=== PATIENT | female | born 1930 | race Caucasian/White ===

== ENCOUNTER 2018-08-15 10:31 | Emergency (ER) | payer MEDICARE, OTHER ==
[2018-08-15 10:48] VITALS: RESP 18
--- NOTE | 2018-08-15 10:48 | ED ---
General Adult HPI - General Stated complaint: Nose Bleed - History of Present Illness Initial comments: Dictation was produced using [employer] dictation software. please excuse any grammatical, word or spelling errors. Chief Complaint: 88 year old female presents with epistaxis. History of Present Illness: Patient is brought in by EMS. She has had epistaxis upon waking this morning. Patient states she woke up approximately 2 and half hours ago. Patient has has history of remote nosebleed patient states she hasn't had a nosebleed since 2-3 years ago. Patient is on Coumadin for H or fibrillation. She has no other complaints at this time. The ROS documented in this emergency department record has been reviewed and confirmed by me. Those systems with pertinent positive or negative responses have been documented in the HPI. All other systems are other negative and/or noncontributory. - Related Data Home Medications Medication Instructions Recorded Confirmed Ascorbic Acid [Vitamin C] 500 mg PO DAILY@1700 08/15/18 08/15/18 Aspirin [Adult Low Dose Aspirin EC] 81 mg PO DAILY@1700 08/15/18 08/15/18 Bisacodyl 10 mg RECTAL DAILY PRN 08/15/18 08/15/18 Calcium Carbonate/Vitamin D3 1 tab PO DAILY@1700 08/15/18 08/15/18 [Calcium 500-Vit D3 200 Tablet] Gabapentin [Neurontin] 100 mg PO BID@0800,1700 08/15/18 08/15/18 Hydrochlorothiazide 12.5 mg PO DAILY@0800 08/15/18 08/15/18 Lactose-Reduced Food [Ensure Plus] 1 can PO BID 08/15/18 08/15/18 Levothyroxine Sodium [Synthroid] 25 mcg PO DAILY@0600 08/15/18 08/15/18 Losartan Potassium [Cozaar] 25 mg PO DAILY@0800 08/15/18 08/15/18 Magnesium Hydroxide [Milk of 2,400 mg PO DAILY PRN 08/15/18 08/15/18 Magnesia] Multivitamins, Thera [Multivitamin 1 tab PO DAILY@1700 08/15/18 08/15/18 (formulary)] Na Phos,M-B/Na Phos,Di-Ba [Fleet 133 ml RECTAL DAILY PRN 08/15/18 08/15/18 Adult] Potassium Chloride ER [K-Dur 20] 20 meq PO DAILY@0800 08/15/18 08/15/18 Sertraline HCl [Zoloft] 50 mg PO DAILY@0800 08/15/18 08/15/18 Warfarin [Coumadin] 2.5 mg PO SUMOTUTHFR 08/15/18 08/15/18 Warfarin [Coumadin] 5 mg PO WESA 08/15/18 08/15/18 Previous Rx's Medication Instructions Recorded Cephalexin [Keflex] 500 mg PO Q6HR 5 Days #20 cap 08/15/18 Allergies Allergy/AdvReac Type Severity Reaction Status Date / Time No Known Allergies Allergy Verified 08/15/18 10:45 Review of Systems ROS Statement: Those systems with pertinent positive or pertinent negative responses have been documented in the HPI. ROS Other: All systems not noted in ROS Statement are negative. General Exam - General Exam Comments Initial Comments: PHYSICAL EXAM: General Impression: Alert and oriented x3, not in acute distress HEENT: Normocephalic atraumatic, extra-ocular movements intact, pupils equal and reactive to light bilaterally, mucous membranes moist, mild oozing from the left nasal septum. Cardiovascular: Heart regular rate and rhythm, S1&S2 audible, no murmurs, rubs or gallops Chest: Lungs clear to auscultation bilaterally, no rhonchi, no wheeze, no rales Abdomen: Bowel sounds present, abdomen soft, non-tender, non-distended, no organomegaly Musculoskeletal: Pulses present and equal in all extremities, no peripheral edema Motor: Power 5/5 bilaterally, no focal deficits noted Neurological: CN II-XII grossly intact, no focal motor or sensory deficits noted Skin: Intact with no visualized rashes Psych: Normal affect and mood Course Vital Signs 08/15/18 10:36 Temperature 98.5 F Pulse Rate 100 Respiratory 18 Rate Blood Pressure 120/71 O2 Sat by Pulse 100 Oximetry Medical Decision Making - Medical Decision Making ED course: 88-year-old female presents with epistaxis 2 hours. Patient is on Coumadin for atrial fibrillation. Vital signs upon arrival are within acceptable limits.Laboratory evaluation obtained. Hemoglobin stable. INR of 2.5. Patient observed in the emergency Department with no further bleeding after placement of left naris merocel. Patient clear for discharge. She is given outpatient referral to ENT. She is told to follow-up in 2-3 days. Prescription provided for Keflex for prophylaxis antibiotics. Patient told to remain in bed rest until seen by ENT doctor. Patient told to resume her usual medications. EKG Interpretation: A 12 lead EKG was obtained. It was interpreted by myself and attending physician. There is a P wave before every QRS complex. Rate is 110. Rhythm is atrial fibrillation, QRS 72, QTc 433. QT is not prolonged. No ST segment depression or elevation. This EKG was compared to a previous EKG that was obtained on [default value] and showed no significant change. Overall, this EKG is unremarkable - Lab Data Result diagrams: 08/15/18 11:10 Lab Results 08/15/18 08/15/18 08/15/18 Range/Units 11:10 11:10 11:10 WBC 7.1 (3.8-10.6) k/uL RBC 4.25 (3.80-5.40) m/uL Hgb 12.5 (11.4-16.0) gm/dL Hct 39.7 (34.0-46.0) % MCV 93.4 (80.0-100.0) fL MCH 29.5 (25.0-35.0) pg MCHC 31.6 (31.0-37.0) g/dL RDW 13.9 (11.5-15.5) % Plt Count 453 H (150-450) k/uL Neutrophils % 72 % Lymphocytes % 19 % Monocytes % 6 % Eosinophils % 2 % Basophils % 0 % Neutrophils # 5.1 (1.3-7.7) k/uL Lymphocytes # 1.3 (1.0-4.8) k/uL Monocytes # 0.4 (0-1.0) k/uL Eosinophils # 0.1 (0-0.7) k/uL Basophils # 0.0 (0-0.2) k/uL PT 24.1 H (9.0-12.0) sec INR 2.5 H (<1.2) Blood Type O Positive Blood Type Recheck CABO Indicated Antibody Screen NEGATIVE Spec Expiration Date 08/18/2018 - 2309 Disposition Clinical Impression: Epistaxis Disposition: HOME SELF-CARE Instructions: Nosebleed (ED) Prescriptions: Cephalexin [Keflex] 500 mg PO Q6HR 5 Days #20 cap Is patient prescribed a controlled substance at d/c from ED?: No Referrals: Bereket Talley MD [Primary Care Provider] - 1-2 days Hank Montanez MD [STAFF PHYSICIAN] - 1-2 days Time of Disposition: 12:02
[2018-08-15] MEDS ORDERED: SILVER NITRATE APPLICATOR 1 EACH STICK..EA. TOPICAL STA (10:49)
[2018-08-15 11:25] LABS: Basophils % (A) 0 %; Eosinophils # (A) 0.1 k/uL (0-0.7); Eosinophils % (A) 2 %; HCT 39.7 % (34.0-46.0); HGB 12.5 gm/dL (11.4-16.0); Lymphocytes # (A) 1.3 k/uL (1.0-4.8); Lymphocytes % (A) 19 %; MCH 29.5 pg (25.0-35.0); MCHC 31.6 g/dL (31.0-37.0); MCV 93.4 fL (80.0-100.0); Mean Platelet Volume 6.8; Monocytes # (A) 0.4 k/uL (0-1.0); Monocytes % (A) 6 %; Neutrophils # (A) 5.1 k/uL (1.3-7.7); Neutrophils % (A) 72 %; Platelet Count 453 k/uL (150-450); RBC 4.25 m/uL (3.80-5.40); RDW 13.9 % (11.5-15.5); WBC 7.1 k/uL (3.8-10.6)
[2018-08-15 11:29] LABS: INR 2.5 (<1.2); Prothrombin Time 24.1 sec (9.0-12.0)
[2018-08-15 12:32] VITALS: BP 122/70; PULSE 90; TEMP 98.4
== END 2018-08-15 12:32 | disposition home or self-care (01) ==
LOC: EC 10:31
DX: R04.0 Epistaxis (principal); I48.91 Unspecified atrial fibrillation; Z79.82 Long term (current) use of aspirin; Z79.01 Long term (current) use of anticoagulants; Z79.899 Other long term (current) drug therapy
CPT/HCPCS: 30901; 36415; 85025; 85610; 86850; 86900; 86901; 93005; 99284

== ENCOUNTER 2019-05-08 07:52 | Emergency (ER) | payer MEDICARE, OTHER ==
[2019-05-08 08:05] VITALS: TEMP 98.5
[2019-05-08] MEDS ORDERED: OXYMETAZOLINE 0.05% NASL SPRAY 1 SPRAY BOTTLE NASAL STA (08:28)
--- NOTE | 2019-05-08 08:30 | ED ---
ENT HPI - General Chief complaint: ENT Stated complaint: nosebleed Time Seen by Provider: 05/08/19 08:05 Source: patient, RN notes reviewed Mode of arrival: wheelchair Limitations: no limitations - History of Present Illness Initial comments: This an 89-year-old female presents emergency Department chief complaint of epistaxis. Patient states it started an hour Sukumar at home. Patient states that is primarily bleeding on the left nostril. She has had this in the past in which she had her nose packed. Patient states that she does take Coumadin for A. fib. She denies any headache, dizziness, abdominal pain, rectal bleeding, image area. Patient denies any excessive bruising at this time. Patient states that her INR level has been up and down and they have been adjusting her medications. Patient states that she does have a nose clamp on which seems to be helping. - Related Data Home Medications Medication Instructions Recorded Confirmed Ascorbic Acid [Vitamin C] 500 mg PO DAILY@1700 08/15/18 05/08/19 Aspirin [Adult Low Dose Aspirin EC] 81 mg PO DAILY@1700 08/15/18 05/08/19 Calcium Carbonate/Vitamin D3 1 tab PO DAILY@1700 08/15/18 05/08/19 [Calcium 500-Vit D3 200 Tablet] Gabapentin [Neurontin] 100 mg PO BID@0800,1700 08/15/18 05/08/19 Hydrochlorothiazide 12.5 mg PO DAILY@0800 08/15/18 05/08/19 Levothyroxine Sodium [Synthroid] 25 mcg PO DAILY@0600 08/15/18 05/08/19 Losartan Potassium [Cozaar] 25 mg PO DAILY@0800 08/15/18 05/08/19 Multivitamins, Thera [Multivitamin 1 tab PO DAILY@1700 08/15/18 05/08/19 (formulary)] Potassium Chloride ER [K-Dur 20] 20 meq PO DAILY@0800 08/15/18 05/08/19 Warfarin [Coumadin] 2.5 mg PO SUMOTUTHFR 08/15/18 05/08/19 Warfarin [Coumadin] 5 mg PO WESA 08/15/18 05/08/19 traMADol HCL [Ultram] 50 mg PO BID PRN 05/08/19 05/08/19 Allergies Allergy/AdvReac Type Severity Reaction Status Date / Time No Known Allergies Allergy Verified 05/08/19 08:36 Review of Systems ROS Statement: Those systems with pertinent positive or pertinent negative responses have been documented in the HPI. ROS Other: All systems not noted in ROS Statement are negative. Past Medical History Past Medical History: Atrial Fibrillation, Hypertension History of Any Multi-Drug Resistant Organisms: None Reported Past Surgical History: Heart Catheterization, Heart Catheterization With Stent Additional Past Surgical History / Comment(s): pacemaker Past Psychological History: No Psychological Hx Reported Smoking Status: Never smoker Past Alcohol Use History: None Reported Past Drug Use History: None Reported General Exam Limitations: no limitations General appearance: alert, in no apparent distress Head exam: Present: atraumatic, normocephalic, normal inspection Eye exam: Present: normal appearance, PERRL, EOMI. Absent: scleral icterus, conjunctival injection, periorbital swelling ENT exam: Present: normal oropharynx, mucous membranes moist, TM's normal bilaterally, normal external ear exam, other (No active bleeding noted from the left nostril there is old blood noted). Absent: normal exam Neck exam: Present: normal inspection, full ROM. Absent: tenderness, meningismus, lymphadenopathy Respiratory exam: Present: normal lung sounds bilaterally. Absent: respiratory distress, wheezes, rales, rhonchi, stridor Cardiovascular Exam: Present: regular rate, normal rhythm, normal heart sounds. Absent: systolic murmur, diastolic murmur, rubs, gallop, clicks GI/Abdominal exam: Present: soft, normal bowel sounds. Absent: distended, tenderness, guarding, rebound, rigid Neurological exam: Present: alert, oriented X3, CN II-XII intact Skin exam: Present: warm, dry, intact, normal color. Absent: rash Course Vital Signs 05/08/19 08:02 Temperature 98.5 F Pulse Rate 84 Respiratory 18 Rate Blood Pressure 152/75 O2 Sat by Pulse 98 Oximetry Medical Decision Making - Medical Decision Making 89-year-old female presented from chief complaint of epistaxis. Patient's had no rebleeding in emergency department. Patient was given Afrin. Patient does take Coumadin and INR is 2.7 at this time. She has no signs of bleeding. Patient will be discharged she has seen ENT in the past. - Lab Data Lab Results 05/08/19 Range/Units 08:45 PT 26.5 H (9.0-12.0) sec INR 2.7 H (<1.2) APTT 40.1 H (22.0-30.0) sec Disposition Clinical Impression: Epistaxis Disposition: HOME SELF-CARE Condition: Stable Instructions (If sedation given, give patient instructions): Nosebleed (ED) Additional Instructions: Please return to the Emergency Department if symptoms worsen or any other concerns. Is patient prescribed a controlled substance at d/c from ED?: No Referrals: Nathan Spence MD [Primary Care Provider] - 1-2 days Time of Disposition: 09:13
[2019-05-08 09:07] LABS: INR 2.7 (<1.2); Partial Thromboplastin Time 40.1 sec (22.0-30.0); Prothrombin Time 26.5 sec (9.0-12.0)
[2019-05-08 09:34] VITALS: BP 150/76; PULSE 80; RESP 16
== END 2019-05-08 09:28 | disposition home or self-care (01) ==
LOC: EC 07:52
DX: R04.0 Epistaxis (principal); I48.91 Unspecified atrial fibrillation; I10 Essential (primary) hypertension; Z79.01 Long term (current) use of anticoagulants; Z79.82 Long term (current) use of aspirin; Z79.890 Hormone replacement therapy; Z79.899 Other long term (current) drug therapy; Z95.0 Presence of cardiac pacemaker; Z95.5 Presence of coronary angioplasty implant and graft
CPT/HCPCS: 36415; 85610; 85730; 99283

== ENCOUNTER 2020-02-29 14:22 | Observation (INO) | payer MEDICARE ==
--- NOTE | 2020-02-29 15:30 | XR ---
EXAMINATION TYPE: XR wrist complete LT DATE OF EXAM: 02/29/2020 CLINICAL HISTORY: pain TECHNIQUE: Frontal, lateral and oblique images of the left wrist are obtained. COMPARISON: None. FINDINGS: Impacted distal radial fracture with intra-articular extension. Suspect small ulnar styloid component. Moderate narrowing radiocarpal joint space. IMPRESSION: Distal radial and ulnar fracture as above. ICD 10 closed FRACTURE, INITIAL EVALUATION
--- NOTE | 2020-02-29 15:37 | XR ---
EXAMINATION TYPE: XR Hip LT and AP Pelvis DATE OF EXAM: 02/29/2020 CLINICAL HISTORY: pain TECHNIQUE: AP and frogleg views of the left hip are obtained. Single view of the pelvis is also subm itted. COMPARISON: None. FINDINGS: Cortical irregularity involving the left os pubis and superior pubic ramus felt to reflect fracture. No additional fractures noted. Severe degenerative narrowing left hip joint space with unde rlying sclerosis and subchondral cyst formation. IMPRESSION: 1. Suspect fracture left os pubis and left superior pubic ramus. 2. Severe degenerative arthropathy.
[2020-02-29] MEDS ORDERED: ONDANSETRON 4 MG/2 ML VIAL IVP STA (16:33)
[2020-02-29] MEDS ORDERED: NALOXONE 0.4 MG/ML 1 ML VIAL IV PRN (16:44)
--- NOTE | 2020-02-29 16:44 | ED ---
Fall HPI - General Chief Complaint: Fall Stated Complaint: Fall Time Seen by Provider: 02/29/20 14:39 Source: patient Mode of arrival: EMS - History of Present Illness Initial Comments: 10-year-old female who is on Coumadin presented to the ER for follow-up. She states that her walker was stuck up on an id. she pulled it out falling onto her left side. Patient states she did not hit her head or neck doesn't injury to her chest or abdomen. Patient states her left groin hurts and it hurts more when she moves her left hip or weakness. Patient states she was able to stand up to get onto the stretcher. Patient denies any numbness tingling or loss of sensation she denies any low back pain neck pain. Patient states that her left wrist also has been bothering her she denies any elbow or shoulder pain. Patient denies additional complaints that she is able to use her wrist denies any numbness tingling loss of sensation coolness or pallor of the extremity. Upon arrival patient is very pleasant she does not appear distressed is resting comfortable on stretcher - Related Data Home Medications Medication Instructions Recorded Confirmed Gabapentin [Neurontin] 100 mg PO TID 08/15/18 02/29/20 Levothyroxine Sodium [Synthroid] 25 mcg PO DAILY@0700 08/15/18 02/29/20 Losartan Potassium [Cozaar] 25 mg PO DAILY 08/15/18 02/29/20 Potassium Chloride ER [K-Dur 20] 20 meq PO DAILY 08/15/18 02/29/20 Warfarin [Coumadin] 2.5 mg PO MOTUTHFRSA 08/15/18 02/29/20 traMADol HCL [Ultram] 50 mg PO 5XD PRN 05/08/19 02/29/20 Acetaminophen Tab [Tylenol Tab] 500 mg PO Q4H PRN 02/29/20 02/29/20 Hydrochlorothiazide [Hydrodiuril] 12.5 mg PO DAILY 02/29/20 02/29/20 Warfarin [Coumadin] 5 mg PO SUWE 02/29/20 02/29/20 metroNIDAZOLE [metroNIDAZOLE 0.75% 1 applic TOPICAL BID PRN 02/29/20 02/29/20 Gel] Allergies Allergy/AdvReac Type Severity Reaction Status Date / Time No Known Allergies Allergy Verified 07/10/20 16:37 Review of Systems ROS Statement: Those systems with pertinent positive or pertinent negative responses have been documented in the HPI. ROS Other: All systems not noted in ROS Statement are negative. Past Medical History Past Medical History: Atrial Fibrillation, Hypertension History of Any Multi-Drug Resistant Organisms: None Reported Past Surgical History: Heart Catheterization, Heart Catheterization With Stent Additional Past Surgical History / Comment(s): pacemaker Past Psychological History: No Psychological Hx Reported Smoking Status: Never smoker Past Alcohol Use History: None Reported Past Drug Use History: None Reported General Exam - General Exam Comments Initial Comments: General: The patient is awake and alert, in no distress Eye: +3 mm pupils are equal, round and reactive to light, extra-ocular movements are intact. No nystagmus. There is normal conjunctiva bilaterally. No signs of icterus. Ears, nose, mouth and throat: There are moist mucous membranes and no oral lesions. No scalp hematomas raccoon or Payne sign Neck: The neck is supple, there is no tenderness or JVD. No midline tenderness to palpation fo the cervical spine. Cardiovascular: There is a regular rate and rhythm. No murmur, rub or gallop is appreciated. Respiratory: Lungs are clear to auscultation, respirations are non-labored, breath sounds are equal. No wheezes, stridor, rales, or rhonchi. Gastrointestinal: Soft, non-distended, non-tender abdomen without masses or organomegaly noted. There is no rebound or guarding present. Musculoskeletal: Upon inspection of the left wrist bilaterally there is no shortening or rotation. Able to weight bear but cannot take more than 1 step secondary to pain. Normal ROM of the knees and ankles b/l. Patient is able to range at both wrists, elbows and shoulder however significnat pain wtih ROm at the left wrist. Pain over the distal forearm. Patient has full strength of legs distal to hip, refuses to fully strength test the hips b/l ensation intact of the UE and LE b/l. Compartments of the upper and lower extremities soft compressible-no pain out of proportion. Radial and DP pulses equal bilaterally 2+. Neurological: A&O x 3. CN II-XII intact grossly, There are no obvious motor or sensory deficits. Coordination appears grossly intact. Speech is normal. Skin: Skin is warm and dry and no rashes or lesions are noted. Psychiatric: Cooperative, appropriate mood & affect, normal judgment. Limitations: no limitations Course Vital Signs 02/29/20 14:25 Temperature 99.3 F Pulse Rate 95 Respiratory 16 Rate Blood Pressure 120/77 O2 Sat by Pulse 93 L Oximetry Medical Decision Making - Medical Decision Making 89yo female presenting today for cc of fall. mechanical in nature. XR + for pelvic rami fractures x2 .Patient wrist has ulnar and radius fracture (left), distal, displaced and comminuted. Patient neurovascularly intact of the upper and lower extremities equal bilaterally. Will be admitted to orthopedics with medicine on consult.. Patient agreeable to care plan and admission. Dr. Greenberg agreeable to care plan and admission. - Lab Data Result diagrams: 02/29/20 16:48 02/29/20 16:48 Lab Results 02/29/20 02/29/20 02/29/20 Range/Units 16:48 16:48 16:48 WBC 12.2 H (3.8-10.6) k/uL RBC 4.34 (3.80-5.40) m/uL Hgb 13.5 (11.4-16.0) gm/dL Hct 43.4 (34.0-46.0) % MCV 99.9 (80.0-100.0) fL MCH 31.0 (25.0-35.0) pg MCHC 31.0 (31.0-37.0) g/dL RDW 13.0 (11.5-15.5) % Plt Count 335 (150-450) k/uL Neutrophils % 81 % Lymphocytes % 12 % Monocytes % 4 % Eosinophils % 2 % Basophils % 0 % Neutrophils # 9.9 H (1.3-7.7) k/uL Lymphocytes # 1.4 (1.0-4.8) k/uL Monocytes # 0.5 (0-1.0) k/uL Eosinophils # 0.2 (0-0.7) k/uL Basophils # 0.0 (0-0.2) k/uL PT 24.9 H (9.0-12.0) sec INR 2.6 H (<1.2) Sodium 137 (137-145) mmol/L Potassium 4.3 (3.5-5.1) mmol/L Chloride 106 (98-107) mmol/L Carbon Dioxide 21 L (22-30) mmol/L Anion Gap 10 mmol/L BUN 26 H (7-17) mg/dL Creatinine 0.77 (0.52-1.04) mg/dL Est GFR (CKD-EPI)AfAm 80 (>60 ml/min/1.73 sqM) Est GFR (CKD-EPI)NonAf 69 (>60 ml/min/1.73 sqM) Glucose 102 H (74-99) mg/dL Calcium 10.5 H (8.4-10.2) mg/dL Total Bilirubin 0.5 (0.2-1.3) mg/dL AST 36 (14-36) U/L ALT 17 (4-34) U/L Alkaline Phosphatase 72 (38-126) U/L Total Protein 8.1 (6.3-8.2) g/dL Albumin 4.4 (3.5-5.0) g/dL Disposition Clinical Impression: Fall, Left radial fracture, Left ulnar fracture, Pubic bone fracture Disposition: ADMITTED IP TO THIS [facility] Condition: Stable Is patient prescribed a controlled substance at d/c from ED?: No Time of Disposition: 16:44 Decision to Admit Reason: Admit from EC Decision Date: 02/29/20 Decision Time: 16:44
[2020-02-29 16:59] LABS: Basophils % (A) 0 %; Eosinophils # (A) 0.2 k/uL (0-0.7); Eosinophils % (A) 2 %; HCT 43.4 % (34.0-46.0); HGB 13.5 gm/dL (11.4-16.0); Lymphocytes # (A) 1.4 k/uL (1.0-4.8); Lymphocytes % (A) 12 %; MCV 99.9 fL (80.0-100.0); Mean Platelet Volume 7.4; Monocytes # (A) 0.5 k/uL (0-1.0); Monocytes % (A) 4 %; Neutrophils # (A) 9.9 k/uL (1.3-7.7); Neutrophils % (A) 81 %; Platelet Count 335 k/uL (150-450); RBC 4.34 m/uL (3.80-5.40); WBC 12.2 k/uL (3.8-10.6)
[2020-02-29 17:08] LABS: INR 2.6 (<1.2); Prothrombin Time 24.9 sec (9.0-12.0)
[2020-02-29] MEDS: MORPHINE SULFATE 2 MG/ML SYRINGE IVP PRN ×2 (17:09→22:36)
[2020-02-29 17:18] LABS: Albumin 4.4 g/dL (3.5-5.0); Calcium 10.5 mg/dL (8.4-10.2); Potassium 4.3 mmol/L (3.5-5.1); Total Bilirubin 0.5 mg/dL (0.2-1.3); Total Protein 8.1 g/dL (6.3-8.2)
--- NOTE | 2020-02-29 18:18 | XR ---
EXAMINATION TYPE: XR chest 2V DATE OF EXAM: 02/29/2020 COMPARISON: NONE HISTORY: Trauma and pain TECHNIQUE: Frontal and lateral views of the chest are obtained. FINDINGS: There is no focal air space opacity, pleural effusion, or pneumothorax seen. The cardiac silhouette size is within normal limits. The osseous structures are intact. There is a generator in the left pectoral region. Leads are present in the right atrium and ventricle. Arthropathy noted wit hin the shoulders. Aorta is dense. IMPRESSION: No acute cardiopulmonary process.
[2020-02-29] MEDS ORDERED: HYDROcodone/APAP 5-325MG 1 EACH TAB PO PRN (20:19)
[2020-02-29] MEDS: GABAPENTIN 100 MG CAP PO SCH (22:36)
[2020-02-29] MEDS ORDERED: BACLOFEN 10 MG TAB PO PRN (23:31)
--- NOTE | 2020-03-01 00:47 | P.CONS ---
History of Present Illness - Reason for Consult Consult date: 02/29/20 medical management Requesting physician: Mekhi Fish - Chief Complaint fall - History of Present Illness 89-year-old female with A. fib on Coumadin and hypertension otherwise healthy Patient comes in after sustaining a fall while walking outside using the walker she claims that the walker got stuck she was trying to talk it out and lost her balance fell on her left side with outstretched hand to support her fall she immediately fell some pain in her groin she was transferred to a stretcher and brought to the hospital for evaluation she was very pleasant upon initial evaluation in the ER did not seem to be in any distress. During my evaluation she was very, cooperative and pleasant denies any active pain at this time she realizes that she was diagnosed with fracture in her pelvis and fracture in her left distal radius and ulna she denies any severe pain in her left wrist she reports that she can move her hand however right now she is in the asked lack to support her right upper extremity due to the fracture she is able to move her fingers denies any numbness or tingling tip of the fingers denies any chest pain trouble breathing abdominal pain denies any trauma to the head or neck. Patient denies any recent falls otherwise she reports that most recent fall was another accident 4 years ago. She reports that she had complete physical recently and she was found to have good strength could balance. Patient on Coumadin for A. fib. Orthopedic recommended conservative management with no plans for surgery at this time Review of Systems Pertinent positives as noted in HPI. All other systems were reviewed and are ne gative Past Medical History Past Medical History: Atrial Fibrillation, Hypertension History of Any Multi-Drug Resistant Organisms: None Reported Past Surgical History: Heart Catheterization, Heart Catheterization With Stent Additional Past Surgical History / Comment(s): pacemaker Past Anesthesia/Blood Transfusion Reactions: No Reported Reaction Date of Last Stent Placement:: 0000 Past Psychological History: No Psychological Hx Reported Smoking Status: Never smoker Past Alcohol Use History: None Reported Past Drug Use History: None Reported - Past Family History Family Family Medical History: No Reported History Medications and Allergies Home Medications Medication Instructions Recorded Confirmed Type Gabapentin [Neurontin] 100 mg PO TID 08/15/18 02/29/20 History Levothyroxine Sodium [Synthroid] 25 mcg PO DAILY@0700 08/15/18 02/29/20 History Losartan Potassium [Cozaar] 25 mg PO DAILY 08/15/18 02/29/20 History Potassium Chloride ER [K-Dur 20] 20 meq PO DAILY 08/15/18 02/29/20 History Warfarin [Coumadin] 2.5 mg PO MOTUTHFRSA 08/15/18 02/29/20 History traMADol HCL [Ultram] 50 mg PO 5XD PRN 05/08/19 02/29/20 History Acetaminophen Tab [Tylenol Tab] 500 mg PO Q4H PRN 02/29/20 02/29/20 History Hydrochlorothiazide [Hydrodiuril] 12.5 mg PO DAILY 02/29/20 02/29/20 History Warfarin [Coumadin] 5 mg PO SUWE 02/29/20 02/29/20 History metroNIDAZOLE [metroNIDAZOLE 0.75% 1 applic TOPICAL BID PRN 02/29/20 02/29/20 History Gel] Allergies Allergy/AdvReac Type Severity Reaction Status Date / Time No Known Allergies Allergy Verified 02/29/20 16:37 Physical Exam Vitals: Vital Signs Temp Pulse Resp BP Pulse Ox 02/29/20 18:33 99.3 F 89 16 117/74 95 02/29/20 17:50 99.3 F 89 16 117/74 95 02/29/20 14:25 99.3 F 95 16 120/77 93 L Intake and Output 02/29/20 02/29/20 02/29/20 06:59 14:59 22:59 Intake Total 200 Balance 200 Intake: Amount of Fluid Infused ( 200 ml) Other: Weight 68.946 kg 68.946 kg Constitutional: No acute distress, conversant, pleasant Eyes: Anicteric sclerae, moist conjunctiva, Pupils equal round reactive to light ENMT: NC/AT Oropharynx clear, no erythema, or exudates Neck: Supple, FROM, no masses, or JVD No carotid bruits No thyromegaly Lungs: Clear to auscultation Clear to percussion Normal respiratory effort, no accessory muscle use Cardiovascular: Heart regular in rate and rhythm, No murmurs, gallops, or rubs No peripheral edema Abdominal: Soft Nontender, no guarding, rebound or rigidity Abdomen moving with respiration Normoactive bowel sounds No hepatomegaly, No splenomegaly No palpable mass No abdominal wall hernia noted Skin: Normal temperature, tone, texture, turgor No induration No subcutaneous nodules No rash, lesions No ulcers Extremities: Left upper extremity and back SLAP support her acute left distal radius and ulna fracture, capillary refill is immediate to the left fingers no pain upon movement of the fingers No digital cyanosis No clubbing Pedal pulses intact and symmetrical Radial pulses intact and symmetrical No calf tenderness Psychiatric: Alert and oriented to person, place and time Appropriate affect fair judgement Neuro Muscles Strength 4/5 in all 4 extremities however limited exam over the distal muscle group in the left upper extremity due to\recent fracture Sensation to light touch grossly present throughout Cranial nerves II-XII grossly intact except for eighth cranial nerve patient is very hard of hearing No focal sensory deficits Lymphatics: no palpable cervical or supraclavicular , or inguinal lymph no paul Results CBC & Chem 7: 02/29/20 16:48 02/29/20 16:48 Labs: Abnormal Lab Results - Last 24 Hours (Table) 02/29/20 02/29/20 02/29/20 Range/Units 16:48 16:48 16:48 WBC 12.2 H (3.8-10.6) k/uL Neutrophils # 9.9 H (1.3-7.7) k/uL PT 24.9 H (9.0-12.0) sec INR 2.6 H (<1.2) Carbon Dioxide 21 L (22-30) mmol/L BUN 26 H (7-17) mg/dL Glucose 102 H (74-99) mg/dL Calcium 10.5 H (8.4-10.2) mg/dL Assessment and Plan Assessment: Acute fracture of the left distal ulna radius Pelvic rami fracture Accidental fall Management per orthopedics plans for conservative management no plans for immediate surgery at this time Pain control Imaging reviewed Chronic conditions A. fib on Coumadin Hypertension on losartan and hydrochlorothiazide Consideration should be made to discuss with the patient risks and benefits of C oumadin for A. fib especially with her recent fall Also consideration should be made to discontinue hydrochlorothiazide especially during summer time due to risk of dehydration resulting in hypotension and falls Patient is full code Thank you for allowing us to participate in the care of this patient. Do not hesitate to contact us with questions. Someone can be reached from the [facility] hospitalist group at all hours of the day at [phone].
[2020-03-01 08:13] LABS: HCT 35.8 % (34.0-46.0); HGB 11.2 gm/dL (11.4-16.0); MCH 31.3 pg (25.0-35.0); MCHC 31.2 g/dL (31.0-37.0); MCV 100.2 fL (80.0-100.0); Mean Platelet Volume 7.6; Platelet Count 240 k/uL (150-450); RBC 3.57 m/uL (3.80-5.40); RDW 13.2 % (11.5-15.5); WBC 7.3 k/uL (3.8-10.6)
[2020-03-01] MEDS: LOSARTAN 25 MG TAB PO SCH (08:24)
[2020-03-01] MEDS: LEVOTHYROXINE 25 MCG TAB PO SCH (08:24)
[2020-03-01] MEDS: GABAPENTIN 100 MG CAP PO SCH ×3 (08:24→21:58)
[2020-03-01 08:33] LABS: Calcium 9.4 mg/dL (8.4-10.2); Potassium 4.1 mmol/L (3.5-5.1)
[2020-03-01 08:57] LABS: INR 2.1 (<1.2); Prothrombin Time 20.3 sec (9.0-12.0)
--- NOTE | 2020-03-01 10:24 | P.PN ---
Subjective Progress Note Date: 03/01/20 Patient seen and evaluated at the bedside. She reported that her hip pain is improved though she has somewhat worsened pain over left arm. Reported 6 out of 10 pain of the arm with no pain at rest of the hip. Reports that she is able to move her left hand and left foot. Denied numbness or tingling anywhere. She denied any additional complaints. Denied fever, chills, chest pain, shortness of breath. Denied cough, nausea, vomiting, or abdominal pain. Objective - Vital Signs Vital signs: Vital Signs Temp 98.2 F 03/01/20 07:00 Pulse 89 03/01/20 07:00 Resp 18 03/01/20 07:00 BP 116/76 03/01/20 07:00 Pulse Ox 95 03/01/20 07:00 Intake & Output 02/29/20 03/01/20 03/01/20 18:59 06:59 18:59 Intake Total 200 Output Total 500 Balance 200 -500 Weight 68.946 kg Intake: Amount of Fluid Infused ( 200 ml) Output: Urine 500 Other: # Bowel Movements 0 - Exam General: Non-toxic, in no acute distress, appears stated age, normal weight HEENT: NC/AT, anicteric sclerae, moist conjunctiva, no lid-lag, PERRLA Cardiovascular: S1/S2 wnl, no murmurs, rubs, or gallops Lungs: Clear to auscultation, normal respiratory effort, no accessory muscle use Abdominal: Soft, non-tender, non-distended, no guarding, rebound, or rigidity Skin: Warm, dry Extremities: Left arm brace in place, left hip tenderness with an overlying skin abnormalities noted Psychiatric: Alert and oriented to person, place and time, appropriate affect Neuro: CN II-XII grossly intact, Strength 4/5 in right upper extremity and right lower extremity, strength limited at left lower extremity and left upper extremity due to recent trauma and acute fractures, able to move fingers and toes on left side, Speech intact, Sensation to light touch grossly intact throughout - Labs CBC & Chem 7: 03/01/20 07:38 03/01/20 07:38 Labs: Abnormal Lab Results - Last 24 Hours (Table) 02/29/20 02/29/20 02/29/20 Range/Units 16:48 16:48 16:48 WBC 12.2 H (3.8-10.6) k/uL RBC (3.80-5.40) m/uL Hgb (11.4-16.0) gm/dL MCV (80.0-100.0) fL Neutrophils # 9.9 H (1.3-7.7) k/uL PT 24.9 H (9.0-12.0) sec INR 2.6 H (<1.2) Sodium (137-145) mmol/L Carbon Dioxide 21 L (22-30) mmol/L BUN 26 H (7-17) mg/dL Glucose 102 H (74-99) mg/dL Calcium 10.5 H (8.4-10.2) mg/dL 03/01/20 03/01/20 03/01/20 Range/Units 07:38 07:38 08:31 WBC (3.8-10.6) k/uL RBC 3.57 L (3.80-5.40) m/uL Hgb 11.2 L (11.4-16.0) gm/dL MCV 100.2 H (80.0-100.0) fL Neutrophils # (1.3-7.7) k/uL PT 20.3 H (9.0-12.0) sec INR 2.1 H (<1.2) Sodium 135 L (137-145) mmol/L Carbon Dioxide (22-30) mmol/L BUN 25 H (7-17) mg/dL Glucose 108 H (74-99) mg/dL Calcium (8.4-10.2) mg/dL Assessment and Plan Plan: Acute traumatic fracture of pelvis and left upper extremity with distal ulna and radius -Management including pain control as per the orthopedic surgery service -Conservative measures planned A. fib, on Coumadin -INR continues to be therapeutic -Continue with home dose -The patient reports that she does not routinely fall, and this was a mechanical fall and not due to dizziness -May consider discontinuing Coumadin if fall risk felt to be high Hypertension -Currently on losartan and hydrochlorothiazide -Patient denying episodes of dizziness or near syncope -Continue with above medications for now though may consider discontinuing HCTZ -Most recent guidelines indicate that the lower the BP, the better the outcomes for patient as long as the patient is asymptomatic and able to tolerate the BP Leukocytosis -Resolved
[2020-03-01] MEDS: MORPHINE SULFATE 2 MG/ML SYRINGE IVP PRN (11:13)
--- NOTE | 2020-03-01 11:16 | P.CNOR ---
History of Present Illness - [facility] Consult date: 03/01/20 Consult reason: fracture History of present illness: Patient is an 89-year-old female who was brought to [facility] for evaluation after a fall that occurred at her home. Patient states that she tripped over her walker while in her driveway. She landed on her left side. Upon arrival to the hospital, imaging and lab tests were done. Images demonstrated a left distal radius fracture and a fracture involving the left superior pubic rami and possible os pubis. I was contacted by the emergency room staff, I was able to review the images. Patient was admitted under our care, internal medicine was placed on consult for management. She was examined today at bedside, she is resting comfortably. She does note some discomfort in the left wrist along with the left buttock region. She was able to ambulate little bit yesterday and today, she notes most the pain when she ambulates. There is a basic cock up wrist splint on the left upper extremity at this time with Efrem bandage. Patient has no other orthopedic complaints at this time. She states that she is rather independent, she does drive still. She utilizes a walker with ambulation. She denies any previous surgery involving the left upper extremity and the left lower extremity. Review of Systems Constitutional: Reports as per [facility] Past Medical History Past Medical History: Atrial Fibrillation, Hypertension History of Any Multi-Drug Resistant Organisms: None Reported Past Surgical History: Heart Catheterization, Heart Catheterization With Stent Additional Past Surgical History / Comment(s): pacemaker Past Anesthesia/Blood Transfusion Reactions: No Reported Reaction Date of Last Stent Placement:: 0000 Past Psychological History: No Psychological Hx Reported Smoking Status: Never smoker Past Alcohol Use History: None Reported Past Drug Use History: None Reported - Past Family History Family Family Medical History: No Reported History Medications and Allergies Home Medications Medication Instructions Recorded Confirmed Type Gabapentin [Neurontin] 100 mg PO TID 08/15/18 02/29/20 History Levothyroxine Sodium [Synthroid] 25 mcg PO DAILY@0700 08/15/18 02/29/20 History Losartan Potassium [Cozaar] 25 mg PO DAILY 08/15/18 02/29/20 History Potassium Chloride ER [K-Dur 20] 20 meq PO DAILY 08/15/18 02/29/20 History Warfarin [Coumadin] 2.5 mg PO MOTUTHFRSA 08/15/18 02/29/20 History traMADol HCL [Ultram] 50 mg PO 5XD PRN 05/08/19 02/29/20 History Acetaminophen Tab [Tylenol Tab] 500 mg PO Q4H PRN 02/29/20 02/29/20 History Hydrochlorothiazide [Hydrodiuril] 12.5 mg PO DAILY 02/29/20 02/29/20 History Warfarin [Coumadin] 5 mg PO SUWE 02/29/20 02/29/20 History metroNIDAZOLE [metroNIDAZOLE 0.75% 1 applic TOPICAL BID PRN 02/29/20 02/29/20 History Gel] Allergies Allergy/AdvReac Type Severity Reaction Status Date / Time No Known Allergies Allergy Verified 02/29/20 16:37 Physical Examination Left upper extremity: Cockup wrist splint and Efrem bandage are in good position and condition. Sensation to light touch both proximal and distal to the splinter intact. No significant swelling or ecchymosis present in the fingers. Skin is warm to touch. She has no tenderness with palpation involving the elbow or shoulder. Range of motion of the elbow and shoulder are intact Left lower extremity: Log roll maneuver of the hip reproduces no pain, she is nontender with palpation throughout the knee, lower leg and foot and ankle. Straight leg raise does reproduce some pain in the buttock region. She is nontender with palpation of the greater trochanter. Calf is soft, no tenderness with palpation, distal neurovascular exam is intact General orthopedic exam: Range of motion of the right upper extremity is intact at shoulder, elbow, wrist and hand. No tenderness with palpation throughout the right upper extremity. L ogroll maneuver of the right lower extremity reproduces no pain, she is nontender with palpation throughout that extremity, the distal neurovascular exam is intact. Results - Labs Labs: Abnormal Lab Results - Last 24 Hours (Table) 02/29/20 02/29/20 02/29/20 Range/Units 16:48 16:48 16:48 WBC 12.2 H (3.8-10.6) k/uL RBC (3.80-5.40) m/uL Hgb (11.4-16.0) gm/dL MCV (80.0-100.0) fL Neutrophils # 9.9 H (1.3-7.7) k/uL PT 24.9 H (9.0-12.0) sec INR 2.6 H (<1.2) Sodium (137-145) mmol/L Carbon Dioxide 21 L (22-30) mmol/L BUN 26 H (7-17) mg/dL Glucose 102 H (74-99) mg/dL Calcium 10.5 H (8.4-10.2) mg/dL 03/01/20 03/01/20 03/01/20 Range/Units 07:38 07:38 08:31 WBC (3.8-10.6) k/uL RBC 3.57 L (3.80-5.40) m/uL Hgb 11.2 L (11.4-16.0) gm/dL MCV 100.2 H (80.0-100.0) fL Neutrophils # (1.3-7.7) k/uL PT 20.3 H (9.0-12.0) sec INR 2.1 H (<1.2) Sodium 135 L (137-145) mmol/L Carbon Dioxide (22-30) mmol/L BUN 25 H (7-17) mg/dL Glucose 108 H (74-99) mg/dL Calcium (8.4-10.2) mg/dL H & H 02/29/20 03/01/20 Range/Units 16:48 07:38 Hgb 13.5 11.2 L (11.4-16.0) gm/dL Hct 43.4 35.8 (34.0-46.0) % Coagulation 02/29/20 03/01/20 Range/Units 16:48 08:31 INR 2.6 H 2.1 H (<1.2) Result Diagrams: 03/01/20 07:38 03/01/20 07:38 Assessment and Plan Assessment: Imaging: X-rays of the left wrist to demonstrate an impacted type left distal radius fracture, with no significant displacement or comminution. Left hip and pelvis x-rays were also reviewed. 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 Evidence of the superior pubic rami fracture on the left side with possible involvement of the os pubis. Plan: I was able to discuss the case, including with physical exam findings and imaging studies my attending Dr. Fish. No orthopedic surgical intervention recommended at this time. Will allow 50% weightbearing with walker on the left lower extremity A prescription for a Velcro wrist brace was provided, she will be fitted for this today. Recommend icing of the wrist often Recommend physical therapy evaluation Patient will likely benefit from rehab placement for short period before retu rning home We'll continue to follow during inpatient stay Time with Patient: Less than 30
[2020-03-01] MEDS: HYDROcodone/APAP 7.5-325MG 1 EACH TAB PO PRN ×2 (15:13→21:58)
[2020-03-01] MEDS ORDERED: WARFARIN 2.5 MG TAB PO SCH (18:00)
[2020-03-02] MEDS: MORPHINE SULFATE 2 MG/ML SYRINGE IVP PRN (01:10)
[2020-03-02 07:38] LABS: INR 1.7 (<1.2); Prothrombin Time 16.3 sec (9.0-12.0)
[2020-03-02] MEDS: GABAPENTIN 100 MG CAP PO SCH ×3 (07:46→20:57)
[2020-03-02] MEDS: HYDROcodone/APAP 7.5-325MG 1 EACH TAB PO PRN ×3 (07:46→20:57)
[2020-03-02] MEDS: LOSARTAN 25 MG TAB PO SCH (07:46)
[2020-03-02] MEDS: LEVOTHYROXINE 25 MCG TAB PO SCH (07:46)
--- NOTE | 2020-03-02 09:35 | P.PN ---
Subjective Progress Note Date: 03/02/20 Principal diagnosis: Left distal radius fracture, left superior pubic rami fracture/os pubis fracture Patient evaluated at bedside today, she is resting comfortably. She does have a Velcro wrist splint in place. She notes improvement in both the left-sided pelvic and left radius discomfort. She denies any chest pain or shortness of breath at this time. Objective - Vital Signs Vital signs: Vital Signs Temp 98.3 F 03/02/20 07:00 Pulse 90 03/02/20 07:00 Resp 18 03/02/20 07:00 BP 145/84 03/02/20 07:00 Pulse Ox 95 03/02/20 07:00 Intake & Output 03/01/20 03/02/20 03/02/20 18:59 06:59 18:59 Intake Total 1040 840 Output Total 200 1000 Balance 840 -160 Intake: Oral 1040 840 Output: Urine 200 1000 - Labs CBC & Chem 7: 03/01/20 07:38 03/01/20 07:38 Labs: Abnormal Lab Results - Last 24 Hours (Table) 03/02/20 Range/Units 06:57 PT 16.3 H (9.0-12.0) sec INR 1.7 H (<1.2) Assessment and Plan Assessment: Left distal radius fracture Left superior pubic rami fracture/os pubis fracture Plan: Plan: Will allow 50% weightbearing with walker on the left lower extremity Continue use of the wrist splint on the left side Recommend physical therapy evaluation Patient will likely benefit from rehab placement for short period before returning home We'll continue to follow during inpatient stay Time with Patient: Less than 30
--- NOTE | 2020-03-02 16:01 | P.PN ---
Subjective Progress Note Date: 03/02/20 Patient seen and evaluated at the bedside on 03/02. She reported that her arm pain is significantly improved from yesterday she continues to have 2 out of 10 pain, along with 1 out of 10 pain at the hip. She denied any additional complaints. Denied chest pain, shortness of fever, chills, or cough. Objective - Vital Signs Vital signs: Vital Signs Temp 99.0 F 03/02/20 15:00 Pulse 94 03/02/20 15:00 Resp 16 03/02/20 15:00 BP 117/68 03/02/20 15:00 Pulse Ox 92 L 03/02/20 15:00 Intake & Output 03/01/20 03/02/20 03/02/20 18:59 06:59 18:59 Intake Total 1040 840 500 Output Total 200 1000 550 Balance 840 -160 -50 Intake: Oral 1040 840 500 Output: Urine 200 1000 550 Other: # Voids 1 - Exam General: Non-toxic, in no acute distress, appears stated age, normal weight HEENT: NC/AT, anicteric sclerae, moist conjunctiva, no lid-lag, PERRLA Cardiovascular: S1/S2 wnl, no murmurs, rubs, or gallops Lungs: Clear to auscultation, normal respiratory effort, no accessory muscle use Abdominal: Soft, non-tender, non-distended, no guarding, rebound, or rigidity Skin: Warm, dry Extremities: Left arm brace in place, left hip tenderness Psychiatric: Alert and oriented to person, place and time, appropriate affect Neuro: CN II-XII grossly intact, Strength 4/5 in right upper extremity and right lower extremity, strength limited at left lower extremity and left upper extremity due to recent trauma and acute fractures, able to move fingers and toes on left side, Speech intact, Sensation to light touch grossly intact throughout - Labs CBC & Chem 7: 03/01/20 07:38 03/01/20 07:38 Labs: Abnormal Lab Results - Last 24 Hours (Table) 03/02/20 Range/Units 06:57 PT 16.3 H (9.0-12.0) sec INR 1.7 H (<1.2) Assessment and Plan Plan: Acute traumatic fracture of pelvis and left upper extremity with distal ulna and radius -Management including pain control as per the orthopedic surgery service -Conservative measures planned A. fib, on Coumadin -Patient may have missed her home dose of Coumadin on admission -INR subtherapeutic -Continue with home dose -The patient reports that she does not routinely fall, and this was a mechanical fall and not due to dizziness -May consider discontinuing Coumadin if fall risk felt to be high Hypertension -Currently on losartan and hydrochlorothiazide -Patient denying episodes of dizziness or near syncope -Continue with above medications for now though may consider discontinuing HCTZ -Most recent guidelines indicate that the lower the BP, the better the outcomes for patient as long as the patient is asymptomatic and able to tolerate the BP Leukocytosis -Resolved
[2020-03-02] MEDS ORDERED: WARFARIN 5 MG TAB PO SCH (18:00)
[2020-03-03] MEDS: HYDROcodone/APAP 7.5-325MG 1 EACH TAB PO PRN ×2 (05:45→13:20)
[2020-03-03 07:58] LABS: INR 1.5 (<1.2); Prothrombin Time 14.8 sec (9.0-12.0)
[2020-03-03] MEDS: LEVOTHYROXINE 25 MCG TAB PO SCH (08:44)
[2020-03-03] MEDS: GABAPENTIN 100 MG CAP PO SCH ×2 (08:44→15:37)
[2020-03-03] MEDS: ACETAMINOPHEN TAB 500 MG TAB PO PRN ×2 (08:49→17:23)
[2020-03-03] MEDS: LOSARTAN 25 MG TAB PO SCH (08:51)
--- NOTE | 2020-03-03 12:41 | P.PN ---
Subjective Progress Note Date: 03/03/20 Principal diagnosis: Left distal radius fracture, left superior pubic rami fracture/os pubis fracture Patient evaluated at bedside today, she is resting comfortably. She does have a Velcro wrist splint in place. She notes improvement in both the left-sided pelvic and left radius discomfort. She denies any chest pain or shortness of breath at this time. Objective - Vital Signs Vital signs: Vital Signs Temp 98.7 F 03/03/20 07:00 Pulse 90 03/03/20 08:00 Resp 16 03/03/20 08:00 BP 104/66 03/03/20 07:00 Pulse Ox 97 03/03/20 07:00 Intake & Output 03/02/20 03/03/20 03/03/20 18:59 06:59 18:59 Intake Total 500 Output Total 550 900 Balance -50 -900 Intake: Oral 500 Output: Urine 550 900 Other: # Voids 1 - Labs CBC & Chem 7: 03/01/20 07:38 03/01/20 07:38 Labs: Abnormal Lab Results - Last 24 Hours (Table) 03/03/20 Range/Units 06:45 PT 14.8 H (9.0-12.0) sec INR 1.5 H (<1.2) Assessment and Plan Assessment: Left distal radius fracture Left superior pubic rami fracture/os pubis fracture Plan: Plan: Will allow 50% weightbearing with walker on the left lower extremity Continue use of the wrist splint on the left side Recommend physical therapy evaluation Plan for discharge to rehab today Time with Patient: Less than 30
--- NOTE | 2020-03-03 12:47 | P.DS ---
Providers Date of admission: 02/29/20 16:55 Expected date of discharge: 03/03/20 Attending physician: Mekhi Fish Consults: 02/29/20 17:08 Consult Physician Routine Consulting Provider: Sharmin Hayden Consult Reason/Comments: fall, left wrist and pelvic fractures Do you want consulting provider notified?: Yes, Notify in am Primary care physician: Nathan Spence MD Hospital Course: Date of admission: 02/29/2020 Date of discharge: 03/03/2020 Admission diagnosis: Left distal radius fracture, left superior pubic rami fracture Discharge diagnosis: Same Attending physician: Dr. Fish Surgical procedures: None Brief history: Patient is a 89-year-old female who presented to [facility] on 02/29/2020 after a fall. It was determined by imaging studies she had a left superior pubic rami fracture and a minimally displaced left distal radius fracture. She was admitted under orthopedic care with internal medicine on consult. Hospital course: Patient was fitted for a Velcro wrist splint that she continues to utilize. We have allowed about 50% weightbearing with the left lower extremity with a walker at all times. Discharge condition/disposition: Patient will be discharged rehab in stable condition. Discharge medications: Instructions are given on resumption of patient's normal daily medications per primary care recommendation, in addition patient will be prescribed [place] 7.5 mg/325 mg Discharge instructions: 1. 50% weightbearing at this time on the left lower extremity, utilize walker 2. Utilize Velcro wrist splint at all times 3. Pain medication as needed 4. Plan for [facility] Patient Condition at Discharge: Stable Plan - Discharge Summary Discharge Rx Participant: No New Discharge Prescriptions: New HYDROcodone/APAP 7.5-325MG [[place] 7.5] 1 each PO Q6HR PRN #28 tab PRN Reason: Pain traMADol HCl [Ultram] 50 mg PO Q6H PRN #28 tab PRN Reason: Pain No Action Gabapentin [Neurontin] 100 mg PO TID Warfarin [Coumadin] 2.5 mg PO MOTUTHFRSA Potassium Chloride ER [K-Dur 20] 20 meq PO DAILY Losartan Potassium [Cozaar] 25 mg PO DAILY Levothyroxine Sodium [Synthroid] 25 mcg PO DAILY@0700 traMADol HCL [Ultram] 50 mg PO 5XD PRN PRN Reason: Pain Warfarin [Coumadin] 5 mg PO SUWE Acetaminophen Tab [Tylenol Tab] 500 mg PO Q4H PRN PRN Reason: Pain Hydrochlorothiazide [Hydrodiuril] 12.5 mg PO DAILY metroNIDAZOLE [metroNIDAZOLE 0.75% Gel] 1 applic TOPICAL BID PRN PRN Reason: [place] AREAS OF FACE Discharge Medication List Gabapentin [Neurontin] 100 mg PO TID 08/15/18 [History] Levothyroxine Sodium [Synthroid] 25 mcg PO DAILY@0700 08/15/18 [History] Losartan Potassium [Cozaar] 25 mg PO DAILY 08/15/18 [History] Potassium Chloride ER [K-Dur 20] 20 meq PO DAILY 08/15/18 [History] Warfarin [Coumadin] 2.5 mg PO MOTUTHFRSA 08/15/18 [History] traMADol HCL [Ultram] 50 mg PO 5XD PRN 05/08/19 [History] Acetaminophen Tab [Tylenol Tab] 500 mg PO Q4H PRN 02/29/20 [History] Hydrochlorothiazide [Hydrodiuril] 12.5 mg PO DAILY 02/29/20 [History] Warfarin [Coumadin] 5 mg PO SUWE 02/29/20 [History] metroNIDAZOLE [metroNIDAZOLE 0.75% Gel] 1 applic TOPICAL BID PRN 02/29/20 [History] HYDROcodone/APAP 7.5-325MG [[place] 7.5] 1 each PO Q6HR PRN #28 tab 03/03/20 [Rx] traMADol HCl [Ultram] 50 mg PO Q6H PRN #28 tab 03/03/20 [Rx] Follow up Appointment(s)/Referral(s): Nathan Spence MD [Primary Care Provider] - 1-2 days Papa Marie [NON-STAFF] - As Needed Zach Parks [NON-STAFF] - As Needed (wrist splint) Mekhi Fish DO [Doctor of Osteopathic Medicine] - 3 Weeks Activity/Diet/Wound Care/Special Instructions: Orthopedic discharge instructions: 1. Utilize wrist splint at all times 2. 50% weightbearing on the left lower extremity, he was walker at all times 3. Plan for [facility]-up at [facility] 2 weeks Discharge Disposition: TRANSFER TO SNF/ECF
[2020-03-03 14:35] VITALS: BP 107/68; PULSE 98; RESP 17; TEMP 97.7
[2020-03-03] MEDS ORDERED: WARFARIN 5 MG TAB PO ONE (18:00)
== END 2020-03-03 17:37 ==
LOC: EC 14:22 → INTOOBSV 16:55 → 4SSUR 16:55 → UNDODISIN 03-03 17:37
PROVIDERS: ADMIT Orthopaedic Surgery; ATTEND Orthopaedic Surgery
DX: S52.502A Unspecified fracture of the lower end of left radius, initial encounter for closed fracture (principal); S32.512A Fracture of superior rim of left pubis, initial encounter for closed fracture; S52.612A Displaced fracture of left ulna styloid process, initial encounter for closed fracture; Z11.59 Encounter for screening for other viral diseases; W18.30XA Fall on same level, unspecified, initial encounter; I10 Essential (primary) hypertension; I48.91 Unspecified atrial fibrillation; M16.0 Bilateral primary osteoarthritis of hip; M51.36 Other intervertebral disc degeneration, lumbar region; D72.829 Elevated white blood cell count, unspecified; H91.93 Unspecified hearing loss, bilateral; Z79.01 Long term (current) use of anticoagulants; Z79.899 Other long term (current) drug therapy; Z79.890 Hormone replacement therapy; Z79.891 Long term (current) use of opiate analgesic; Z95.5 Presence of coronary angioplasty implant and graft; Z95.0 Presence of cardiac pacemaker; Y92.008 Other place in unspecified non-institutional (private) residence as the place of occurrence of the external cause
CPT/HCPCS: 29125; 96376 ×3; 96374; 96375; 99285; 36415; 93005; 97162; 97166; 80053; 80048; 85025; 85027; 85610 ×4; 73502; 73110; 71046; G0378 ×4; U0003; J2405; J2270 ×3